=== PATIENT | female | born 1975 | race Two or more races ===

== ENCOUNTER 2021-10-04 17:13 | Emergency (ER) | payer SELFPAY ==
[~2021-10-04] VITALS: Ht 154.9 cm; Wt 83.9 kg
[2021-10-04 17:19] VITALS: BP 138/76
[2021-10-04] MEDS ORDERED: CYCL-837 PO (18:54)
== END 2021-10-04 19:01 | disposition home or self-care (01) ==
LOC: ER 17:13
DX: M25.512 Pain in left shoulder (principal); R07.89 Other chest pain
CPT/HCPCS: 73030; 93005